=== PATIENT | male | born 1960 | race Caucasian/White ===

== ENCOUNTER 2022-01-21 10:53 | Emergency (ER) | payer OTHER ==
[~2022-01-21] VITALS: Ht 188 cm; Wt 86.2 kg
[~2022-01-21 10:53] MED LIST: ALBU90OI INH; ANORO ELLIPTA1 EACH INH; Acetaminophen650 M1; COMBIVENT RESPIM4 GM; DEXA4 PO; DOCU100 PO; IBUP800 PO; IPRAT-ALBUT 0.5-3 ML NEB; Inderal40 MG; LEVO750 PO; LOSA25; Loratadine10 MG PO; METO25ER; METO50ER PO; PROP60 PO; TRAZ50 PO; XARELTO20 MG PO
[2022-01-21] MEDS ORDERED: PRED20 PO (11:35)
== END 2022-01-21 11:35 | disposition home or self-care (01) ==
LOC: ER 10:53
DX: L23.7 Allergic contact dermatitis due to plants, except food (principal); I10 Essential (primary) hypertension; J43.9 Emphysema, unspecified; F17.290 Nicotine dependence, other tobacco product, uncomplicated; Z79.01 Long term (current) use of anticoagulants; Z79.899 Other long term (current) drug therapy
CPT/HCPCS: 99282

== ENCOUNTER 2023-09-24 07:54 | Inpatient (IN) | payer OTHER ==
[~2023-09-24] VITALS: Ht 188 cm; Wt 83.6 kg
[~2023-09-24 07:54] MED LIST changes: +PRED20 PO
[2023-09-24] MEDS ORDERED: BUDE.25 INH (08:06)
[2023-09-24 08:19] LABS: BASOPHILS ABSOLUTE AUTO 0.12 K/mm3 (0.00-0.23); BASOPHILS PERCENT AUTO 1 % (0-2); EOSINOPHILS ABSOLUTE AUTO 0.26 K/mm3 (0.00-0.68); EOSINOPHILS PERCENT AUTO 2 % (0-6); Hematocrit 52.4 % (37.0-53.0); IMMATURE GRAN ABSOLUTE AUTO 0.05 K/mm3 (0.00-0.10); IMMATURE GRAN PERCENT AUTO 0 % (0-1); LYMPHOCYTES ABSOLUTE AUTO 2.23 K/mm3 (0.84-5.20); LYMPHOCYTES PERCENT AUTO 17 % (21-46); MONOCYTES ABSOLUTE AUTO 0.77 K/mm3 (0.16-1.47); MONOCYTES PERCENT AUTO 6 % (4-13); Mean Corpuscular HGB 29.4 pg (26.0-34.0); Mean Corpuscular HGB Conc 34.4 g/dL (31.5-36.5); Mean Corpuscular Volume 86 fL (80-100); Mean Platelet Volume 9.7 fL (9.1-12.4); NEUTROPHILS ABSOLUTE AUTO 9.45 K/mm3 (1.96-9.15); NEUTROPHILS PERCENT AUTO 73 % (41-73); Platelet Count 295 K/mm3 (150-400); RDW Standard Deviation 39.9 fL (35.1-46.3); Red Blood Cell Count 6.12 M/mm3 (4.30-5.90); White Blood Cell Count 12.88 K/mm3 (4.00-11.30)
[2023-09-24 08:50] LABS: Albumin, Blood 3.6 g/dL (3.4-5.0); Bun/Creatinine Ratio 9.4 (12.0-20.0); Calcium, Blood 10.2 mg/dL (8.5-10.1); Creatinine, Blood 0.96 mg/dL (0.60-1.20); Globulin, Blood 3.7 g/dL (2.2-4.0); Potassium, Blood 5.1 mmol/L (3.5-5.5); Total Protein, Blood 7.3 g/dL (6.4-8.2)
[2023-09-24] MEDS ORDERED: Morphine Sulfate 4 MG/1 ML Injection IV ONE (08:50)
[2023-09-24] MEDS ORDERED: NS 1,000 ML IV SCH (09:35)
[2023-09-24] MEDS ORDERED: Ondansetron HCl 2 MG / ML 2ML Vial IV ONE (09:45)
[2023-09-24] MEDS ORDERED: HYDROmorphone HCl/Pf 1MG SYR IV ONE ×2 (09:45→18:00)
[2023-09-24] MEDS ORDERED: ChlordiazePOXIDE 25 MG Cap PO PRN (11:30)
[2023-09-24] MEDS ORDERED: LORazepam 2 MG/ML 1ML Injection IV PRN (11:30)
[2023-09-24] MEDS ORDERED: Ondansetron HCl 2 MG / ML 2ML Vial IV PRN (11:30)
[2023-09-24] MEDS ORDERED: FLU VACC QS2023-24(6MOS UP)/PF 60 MCG/0.5 ML SYRINGE IM SCH (11:30)
[2023-09-24] MEDS ORDERED: FentaNYL Citrate 50 MCG/ML 2 ML Injection IV PRN (11:30)
[2023-09-24] MEDS ORDERED: Lactated Ringer's 1,000 ML IV SCH (12:00)
[2023-09-24] MEDS ORDERED: Folic Acid 1 MG in NS 50 ML IV SCH (14:00)
[2023-09-24] MEDS ORDERED: Thiamine HCl 100 MG in NS 50 ML IV SCH (14:00)
[2023-09-24] MEDS ORDERED: Budesonide 0.25 MG / 2 ML RESP INH SCH (14:35)
[2023-09-24] MEDS ORDERED: Albuterol HFA200 ACT/6.7 GM INH INH PRN (14:35)
[2023-09-24] MEDS ORDERED: MULVITA PO (16:04)
[2023-09-24] MEDS ORDERED: GARLIC200 MG PO (16:04)
[2023-09-24 16:05] VITALS: BP 174/75
[2023-09-24 17:09] VITALS: BP 168/70
[2023-09-24] MEDS ORDERED: TEMAZEPAM1511 PO (17:15)
[2023-09-24] MEDS ORDERED: HydrALAZINE HCl 20 MG / ML 1ML Vial IV PRN (17:35)
[2023-09-24 17:58] VITALS: BP 166/69
[2023-09-24] MEDS ORDERED: HYDROmorphone HCl/Pf 1MG SYR IV PRN (18:00)
[2023-09-24 18:04] VITALS: BP 154/62
[2023-09-24 19:33] VITALS: BP 152/63
[2023-09-24] MEDS ORDERED: Metoprolol Succinate 50 MG TABCR PO SCH (21:00)
[2023-09-25] VITALS (7 sets, daily range): BP systolic 131–173; BP diastolic 60–73
[2023-09-25 06:33] LABS: Bun/Creatinine Ratio 10.4 (12.0-20.0); Calcium, Blood 8.9 mg/dL (8.5-10.1); Creatinine, Blood 0.97 mg/dL (0.60-1.20); Potassium, Blood 3.8 mmol/L (3.5-5.5)
[2023-09-25] MEDS ORDERED: Enoxaparin 40 MG/0.4 ML SYR SC SCH (09:00)
[2023-09-25] MEDS ORDERED: Nicotine 21 MG PATCH TOP SCH (09:00)
[2023-09-25] MEDS ORDERED: Pantoprazole Sodium 40 MG Injection IV SCH (09:00)
[2023-09-25] MEDS ORDERED: Lactated Ringer's 1,000 ML IV SCH (19:15)
[2023-09-26 04:48] VITALS: BP 136/58
[2023-09-26 08:09] VITALS: BP 138/69
[2023-09-26] MEDS ORDERED: NICO21TP TOP (11:02)
== END 2023-09-26 11:40 | disposition home or self-care (01) | DRG 440 ==
LOC: ER 07:54 → ERHOLD 11:26 → MEDS 16:02 → ENPENDDIS 09-26 10:51 → MEDS 09-26 11:40
PROVIDERS: Emergency Medicine; ADMIT Internal Medicine
DX: K85.20 Alcohol induced acute pancreatitis without necrosis or infection (principal); F10.20 Alcohol dependence, uncomplicated; I10 Essential (primary) hypertension; J43.9 Emphysema, unspecified; F17.290 Nicotine dependence, other tobacco product, uncomplicated
CPT/HCPCS: 36415; 74177; 80048; 80053; 83690; 84484; 85025; 93005; 93010; 94640; 94664; 94760; 94762; 96374; 96375; 99285-25; A9270; C9113; J0360; J1170; J1650; J2270; J2405; J3010; J3411; J7030; J7120; Q9967